=== PATIENT | male | born 1955 | race Caucasian/White ===

== ENCOUNTER 2025-04-13 10:56 | Outpatient (AMB) | payer MEDICARE, MEDICAID, SELFPAY ==
--- NOTE | 2025-04-13 10:58 | A.OFFPC_ITS ---
Vital Signs 04/13/25 11:05 Height 5 ft 11 in Weight 198 lb BMI 27.6 BP 152/92 H Blood Pressure Location Rt brachial Position Sitting Respiration 16 Pulse 77 Pulse Source Pulse Oximeter Temp 97.5 F Pulse Oximetry (%) 98 Oxygen Delivery Method Room Air Intake Visit Reasons: 3 month follow up-juliano pt Fish Net Maker Required: No Accompanied by: Self / Same As Patient Allergies Antibiotic Allergy (Unknown, Uncoded 04/13/25 11:01) Anaphylaxis Medication List - Last Reconciled 04/13/25 by Alvaro Call MD diltiazem HCl ER (Tiazac) 360 mg (2 x 180 mg) PO DAILY fluticasone propionate 50 mcg/actuation 2 sprays intranasal BID PRN FreeStyle Test (blood sugar diagnostic) once daily NS hydralazine 50 mg PO BID hydrochlorothiazide 25 mg PO QAM meloxicam 15 mg PO DAILY PRN metformin 500 mg PO BEDTIME pregabalin 100 mg PO BEDTIME simvastatin 10 mg PO BEDTIME trazodone 50 mg PO BEDTIME valacyclovir 500 mg PO DAILY Tobacco use date assessed: 04/13/25 HPI HPI Comments History of Present Illness Details The patient is a 69-year-old male presenting with a primary concern of hypertension management and follow-up on chronic conditions. Approximately a month and a half ago, the patient experienced a hypertensive episode with a blood pressure reading of 190/90 mmHg, leading to an ER visit. He notes this episode was likely exacerbated by stress related to personal loss and financial issues. After a series of cardiac evaluations, it was concluded that his heart was not the primary issue, but rather stress-induced. He has a history of hypertension, initially managed with lisinopril, which was discontinued due to elevated potassium levels. Currently, he takes hydralazine and hydrochlorothiazide. The patient also reports managing Type 2 Diabetes Mellitus with metformin 500 mg, although he had run out of test strips a month ago and therefore seldom checks his glucose levels presently. His weight and lack of activity have contributed to sciatic pain and bilateral knee osteoarthritis, which have remained untreated surgically despite recommendations for knee replacements made 15 years ago. He mentions taking trazodone for sleep and venlafaxine for anxiety. Additionally, he treats genital herpes with valacyclovir. The patient has been managing his sleep disorder with trazodone and deals with anxiety following personal loss, as discussed. He highlights issues with climbing stairs and pain in his knees aggravated by physical activity. The knee condition is improved by less strenuous activity, and he denies having regular stiffness in the morning. Recently, he feels his domestic arrangements are not ideal for someone considering knee replacement surgery, given his living on the second floor. Nonetheless, the patient remains hopeful about relocating to a first-floor apartment, allowing knee surgery considerations to gain practicality. Medical History: - Essential Hypertension - Hyperlipidemia - Type 2 Diabetes Mellitus - Sciatic condition - Bilateral Knee Osteoarthritis - Anxiety Disorder Surgical History: - Arthroscopic knee surgery for bone fra gment removal Medications: - Hydralazine 50 mg twice daily for hype rtension - Hydrochlorothiazide 25 mg daily for hy pertension - Metformin 500 mg for Type 2 Diabetes M ellitus - Trazodone for sleep - Valacyclovir for genital herpes - Pregabalin for sciatic pain Family History: - The son due to the opioid epi demic Social: - Lives alone - Previous long-term smoking history (10 years, quit 2014) - Alcohol use: 3 beers; monthly social o ccasion - Plans to relocate from the second floo r to the first floor unit to accommodate potential knee surgery - Experiences sciatic pain which impacts physical activity such as climbing stairs [facility] Medical History (Updated 04/13/25 @ 11:33 by Alvaro Call MD) Hyperlipidemia Hypertension Social History Housing: Apartment Patient Tobacco Use Status: Former Tobacco user Tobacco use type: Cigarette e-Cigarette/Vaping Use: Never Used Questionnaire PHQ-9 Over the last 2 weeks, how often have you been bothered by any of the following problems? 1. Little interest or pleasure in doing things: not at all 2. Feeling down, depressed, or hopeless: not at all 3. Trouble falling or staying asleep, or sleeping too much: not at all 4. Feeling tired or having little energy: not at all 5. Poor appetite or overeating: not at all 6. Feeling bad about yourself - or that you are a failure or have let yourself or your family down: not at all 7. Trouble concentrating on things, such as reading the newspaper or watching television: not at all 8. Moving or speaking so slowly that other people could have noticed. Or the opposite - being so fidgety or restless that you have been moving around a lot more than usual: not at all 9. Thoughts that you would be better off or of hurting yourself in some way: not at all Total score: 0 Depression Screening Interpretation: Negative Depression Screening Done: Yes 74374 - PHQ-9 Billing: Yes Source: Developed by Drs. Eamon Guardado, Vianney Ryan, James Crowley and colleagues, with an educational alicia from [employer]. Thrive Questionnaire Date Thrive assessed: 04/13/25 I am a: Patient What is your living situation today?: I have a steady place to live Within the past 12 months, did the food you bought not last and you didn't have the money to get more?: Never true Within the past 12 months, did you worry whether your food would run out before you got money to buy more?: Never true Do you have trouble paying for medicines?: No Do you have trouble getting transportation to medical appointments?: No Do you have trouble paying your heating and electricity bill?: No Do you have trouble taking care of your child, family member or friend?: No Do you have trouble with day-to-day activities such as bathing, preparing meals, shopping, managing finances, etc.?: No Are you currently unemployed and looking for a job?: No Are you interested in more education?: No THRIVE Score: 0 AUDIT C Alcohol Use Questionnaire (AUDIT-C) 1. How often do you have a drink containing alcohol?: Monthly or less 2. How many drinks containing alcohol do you have on a typical day when you are drinking?: 3 or 4 3. How often do you have six or more drinks on one occasion?: Never Total Score: 2 NATASHA-7 AMB Questionnaire NATASHA-7 Feeling nervous, anxious, or on edge: 0 = Not at all Not being able to stop or control worryin = Not at all Worrying too much about different things: 0 = Not at all Trouble relaxin = Not at all Being so restless that it is hard to sit still: 0 = Not at all Becoming easily annoyed or irritable: 0 = Not at all Feeling afraid as if something awful might happen: 0 = Not at all Total NATASHA-7 score (0-4 normal; 5-9 mild; 10-14 moderate; 15-21 severe): 0 Source: Developed by Drs. Eamon Guardado, Vianney Ryan, James Crowley and colleagues, with an educational alicia from [employer]. NATASHA-7 Assessment Billing NATASHA-7 Assessment Tool: NATASHA-7 Assessment 15353 Review of Systems Const Details: - Cardiovascular: Denies chest pain, denies shortness of breath - Gastrointestinal: Denies nausea, vomiting, bowel movements regular without blood - Genitourinary: Denies blood in urine, no issues with urination - Musculoskeletal: Reports sciatic condition, knee pain - Neurological: Denies headaches - Psychiatric: Reports management of anxiety Physical exam (Primary Care) Vital Signs: Last Vital Signs Temp 97.5 F 04/13/25 11:05 Pulse 77 04/13/25 11:05 Resp 16 04/13/25 11:05 BP 152/92 H 04/13/25 11:05 Pulse Ox 98 04/13/25 11:05 Oxygen Delivery Method Room Air 04/13/25 11:05 BMI result Body Mass Index 27.6 Tobacco/Smoking Status: Tobacco use Status Tobacco use date assessed 04/13/25 04/13/25 11:04 Patient Tobacco Use Status Former Tobacco user 04/13/25 11:08 Tobacco use type Cigarette 04/13/25 11:08 e-Cigarette/Vaping Use Never Used 04/13/25 11:04 Depression Screening Interpretation: Negative Const Other: General: Alert and oriented, Well nourished, No acute distress. Eye: Pupils are equal, round and reactive to light, Intact accommodation, Extraocular movements are intact, Normal conjunctiva, Vision unchanged. HENT: Normocephalic, Atraumatic, Tympanic membranes are clear, Normal hearing, Oral mucosa is moist, No pharyngeal erythema, Ear canals patent. Respiratory: Lungs CTA bilaterally, No wheeze, Respirations are non-labored. Cardiovascular: Regular rate, Regular rhythm, S1 auscultated, S2 auscultated, No murmur, Good pulses equal in all extremities, Normal peripheral perfusion, No edema. Gastrointestinal: Soft, Non-tender, Non-distended, Normal bowel sounds, No organomegaly. Musculoskeletal: Normal range of motion, Normal strength, No tenderness, No swelling, No deformity, Normal gait. Noted sciatic condition and need for knee replacements. Integumentary: Warm, Dry, [place], Intact. Lesion noted on right forearm with irregular borders, darker than the rest of the skin. Neurologic: Alert, Oriented, Normal sensory, Normal motor function, No focal defects, Cranial Nerves II-XII are grossly intact, Normal deep tendon reflexes. Psychiatric: Cooperative, Appropriate mood & affect, Normal judgment. Reports stress and anxiety related to personal losses and financial issues, but no current depression or anxiety symptoms. Coding Level of Care Code New Pt Level 4 (11588) Complex EM visit Add On G2211 Diagnoses Type 2 diabetes mellitus E11.9 Hypertension I10 Hyperlipidemia E78.5 Additional Codes PHQ-9 - 52996 - PHQ-9 Billing: Yes ([id number]) NATASHA-7 Assessment Billing - NATASHA-7 Assessment Tool: NATASHA-7 Assessment 76887 ([id number]) Assessment & Plan Assessment & Plan (1) Type 2 diabetes mellitus: Comment: Unclear of diagnosis of diabetes, currently on metformin but unsure of A1c. Home blood sugars are below 100. At this time we will continue metformin and obtain A1c and determine changes in medication regimen Code(s): E11.9 - Type 2 diabetes mellitus without complications Category: Medical Plan: Order A1c Continue metformin (2) Hypertension: Comment: Currently being managed with diltiazem 360, hydralazine 50 b.i.d., hydrochlorothiazide 25 mg. Previously tried and knees however had hyperkalemia with that medication therefore we will increase hydralazine to 50 t.i.d. and I have asked brain record of pressures. Code(s): I10 - Essential (primary) hypertension Category: Medical Plan: Increase hydralazine from 50 mg b.i.d. to 50 t.i.d. Continue diltiazem 360 mg daily Continue hydrochlorothiazide 25 mg daily Continue blood pressure monitoring (3) Hyperlipidemia: Comment: Elevated LDL per last blood work and currently on simvastatin 10 mg daily Code(s): E78.5 - Hyperlipidemia, unspecified Category: Medical Plan: Continue simvastatin 10 and reordered lipid panel Plan 4. Sciatic Pain - Continue current management with pregabalin 5. Bilateral Knee Osteoarthritis - Consideration for knee replacement pending; discuss with orthopedics (patient has declined TKR's previously) 6. Sleep Disorder - Trazodone regime to continue 7. Genital Herpes - Continue valacyclovir therapy Orders: Orders Comprehensive Met. Panel Today E11.9 - Type 2 diabetes mellitus without complications, E78.5 - Hyperlipidemia, unspecified, I10 - Essential (primary) hypertension Hemoglobin A1c Today E11.9 - Type 2 diabetes mellitus without complications, E78.5 - Hyperlipidemia, unspecified, I10 - Essential (primary) hypertension TSH reflex Free T4 Today E11.9 - Type 2 diabetes mellitus without complications, E78.5 - Hyperlipidemia, unspecified, I10 - Essential (primary) hypertension Complete Blood Count Auto Diff Today E11.9 - Type 2 diabetes mellitus without complications, E78.5 - Hyperlipidemia, unspecified, I10 - Essential (primary) hypertension Vitamin D 25-OH Total Today E11.9 - Type 2 diabetes mellitus without complications, E78.5 - Hyperlipidemia, unspecified, I10 - Essential (primary) hypertension Lipid Panel Today E11.9 - Type 2 diabetes mellitus without complications, E78.5 - Hyperlipidemia, unspecified, I10 - Essential (primary) hypertension Referrals Cologuard Test Z12.11 - Encounter for screening for malignant neoplasm of colon, Z12.12 - Encounter for screening for malignant neoplasm of rectum Medications: New hydrochlorothiazide 25 mg PO QAM 90 tabs 0RF 90 days Changed From hydralazine Take 1 tab by mouth twice a day 50 mg PO BID 180 tabs 0RF To hydralazine Take 1 tab by mouth twice a day 50 mg PO TID 270 tabs 0RF 90 days Patient Instructions: During the visit, I discussed with the patient the management plan for his hypertension, emphasizing the adjustment of his hydralazine dosage to better control blood pressure. We explored the interplay between stress, personal loss, and hypertension, and discerned that recent cardiac evaluations ruled out significant cardiac issues. The need for better cholesterol and glucose management was delineated, while addressing his current medications. Furthermore, we examined interventions for his orthopedic challenges, including future knee surgery and living arrangements conducive for post-operative recovery. I reinforced the importance of follow-ups and encouraged contact with the cardiology unit for any pending reports. Vaccination protocols and potential diagnostics like Cologuard were also reviewed. - Take hydralazine 50 mg three times a day, daily - Monitor blood pressure at home regularly - Continue metformin and strive for periodic glucose level checks at home - Follow up with your quality improvement specialist regarding knee surgery options - Maintain trazodone and valacyclovir as prescribed - Recognize and moderate stress sources; consider reaching out for mental health support if needed - Ensure to keep up with vaccinations - Schedule a follow-up visit in approximately six months or earlier if symptoms persist or worsen
[2025-04-13 11:05] VITALS: BP 152/92; PULSE 77; RESP 16; TEMP 36.4; O2SAT 98; BMI 27.6
--- OUTSIDE RECORDS SUMMARY | 2025-04-13 11:50 | XMS_ITS | Clinical Summary ---
Author Organization [facility] Address [address] [place] [address] Phone Care Team Providers Care Bi Analyst Name Role Phone Kamar Randhawa MD Primary Care Provider Allergies No known active allergies Medications dilTIAZem 180 mg 24hr Active lisinopril (PRINIVIL,ZESTR IL) 30 MG tablet Active meloxicam (MOBIC) 15 MG tablet Take 15 mg by mouth daily. 11 09/15/2017 Active cyclobenzaprine (FLEXERIL) 5 MG tablet Take 5 mg by mouth. 0 07/23/2017 Active gabapentin (NEURONTIN) 300 MG capsule TAKE 2 CAPSULE BY MOUTH EVERY MORNING AND 2 CAPSULES AT BEDTIME 3 08/29/2017 Active valACYclovir (VALTREX) 500 MG tablet Take 500 mg by mouth daily. 11 08/12/2017 Active fluticasone propionate (FLONASE) 50 mcg/actuation nasal spray USE 2 SPRAYS INTO BOTH NOSTRILS TWICE A DAY NEEDED 02/17/2020 Active hydrocortisone 2.5 % cream APPLY A THIN LAYER TO THE AFFECTED AREAS 2 TIMES PER DAY FOR 7 TO 10 DAYS 01/31/2020 Active metFORMIN (GLUCOPHAGE) 500 MG tablet Take 500 mg by mouth nightly at bedtime. 02/27/2020 Active pregabalin (LYRICA) 50 MG capsule TAKE 1 CAPSULE BY MOUTH AT BEDTIME 03/31/2020 Active traZODone (DESYREL) 50 MG tablet TAKE 1 TABLET BY MOUTH AT BEDTIME DIRECTED 04/10/2020 Active lisinopril (PRINIVIL,ZESTR IL) 40 MG tablet Take 40 mg by mouth daily. 01/24/2020 Active Active Problems Problem Noted Date Diagnosed Date Hypertension 09/30/2017 Primary localized osteoarthrosis of right lower leg 09/30/2017 Bilateral chronic knee pain 09/29/2017 Family History Medical History Relation Comments No Known Problems Brother No Known Problems Father No Known Problems Maternal Aunt No Known Problems Maternal Grandfather No Known Problems Maternal Grandmother No Known Problems Maternal Uncle Infl. arthritis Mother No Known Problems Paternal Aunt No Known Problems Paternal Grandfather No Known Problems Paternal Grandmother No Known Problems Paternal Uncle No Known Problems Sister Cancer Unspecified Clotting disorder Neg Hx Collagen disease Neg Hx Depression Neg Hx Diabetes Neg Hx Dislocations Neg Hx Gout Neg Hx Osteoporosis Neg Hx Scoliosis Neg Hx Relation Status Comments Brother Father Maternal Aunt Maternal Grandfather Maternal Grandmother Maternal Uncle Mother Paternal Aunt Paternal Grandfather Paternal Grandmother Paternal Uncle Sister Unspecified Social History Tobacco Use Types Packs/Day Years Used Date Smoking Tobacco: Former Cigarettes Q uit: 09/2012 Smokeless Tobacco: Former Education Answer Date Recorded Are you interested in more education? Not on prasanna e 12/13/2022 Are you concerned about learning? Not on file 12/13/2022 No 12/13/2022 No 12/13/2022 Digital Access Answer Date Recorded No 01/11/2023 No 01/11/2023 Reliable internet access at home? Not on file 01/11/2023 Device with a working camera? Not on file Sex and Gender Information Value Date Recorded Sex Assigned at Not on file Legal Sex Male 9:53 PM EDT Gender Identity Not on file Sexual Orientation Not on file Last Filed Vital Signs Vital Sign Reading Time Taken Comments Blood Pressure 146/96 2017 10:44 AM EDT Pulse 82 2017 10:44 AM EDT Temperature - - Respiratory Rate - - Oxygen Saturation - - Inhaled Oxygen Concentration - - Weight 100.7 kg (222 lb) 04/18/2020 10:40 AM EDT Height 180.3 cm (5' 10.98 ) 09/30/2017 2:[address] Body Mass Index 30.98 09/30/2017 2:39 PM EST Plan of Treatment Health Maintenance Due Date Last Done Comments Adult Td,Tdap Booster 1957 BLOOD PRESSURE 1957 CREATININE LEVEL 1957 LIPID PANEL 1957 POTASSIUM LEVEL 1957 DEPRESSION SCREENING 1969 SMOKING Hx and SMOKELESS TOBACCO SCREENING 1970 HEPATITIS C SCREENING 1975 COLOGUARD 2002 COLONOSCOPY 2002 COLORECTAL CANCER SCREENING 2002 FIT TEST 2002 FOBT 2002 SIGMOIDOSCOPY 2002 VIRTUAL COLONOSCOPY 2002 PNEUMOCOCCAL VACCINES (50+ years) (1 of 1 - PCV) 2007 ZOSTER VACCINES (1 of 2) 2007 ABDOMINAL AORTIC ANEURYSM (AAA) SCREENING 2022 COVID-19 VACCINE (2 - 2023-2 5 season) 2024 11/10/2020 INFLUENZA VACCINE (#1) 2025 9, 05/21/2018, 05/22/2017 RSV VACCINE (1 - 1-dose 75+ series) 2032 HEPATITIS A VACCINES Aged Out No long er eligible based on patient's age to complete this topic HIB VACCINES Aged Out No longer eligi ble based on patient's age to complete this topic MENINGOCOCCAL VACCINES (ACWY) Aged Out No longer eligible based on patient's age to complete this topic MENINGOCOCCAL VACCINES (B) Aged Out N o longer eligible based on patient's age to complete this topic Medical Devices Not on file Insurance [facility] MEDICARE PART A & [place] & B [employer] Care Teams Bi Analyst Relationship Specialty Start Date End Date Kamar Randhawa MD [address] [place] [address] [place] [address] PCP - General 06/05/17 Additional Source Comments The information contained in this document represents components of the legal health record. It is not the complete legal health record.[facility]
--- OUTSIDE RECORDS SUMMARY | 2025-04-13 11:50 | XMS_ITS | Encounter Summary ---
Author Organization [employer] [facility] Address [address] [place] [address] Care Team Providers Care Stone Fabricator Name Role Phone Unavailable Primary Care Provider Unavailabl e Encounter Details Date Type Department Care Team (Latest Contact Info) Description 10/14/2018 Abstract C CONVERSIONS Dental, Provider, DDS Social History Tobacco Use Types Packs/Day Years Used Date Smoking Tobacco: Never Assessed Sex and Gender Information Value Date Recorded Sex Assigned at Male 06/17/2022 10:28 AM EDT Legal Sex Male 10:28 AM EDT Gender Identity Not on file Sexual Orientation Not on file documented as of this encounter Plan of Treatment Not on file documented as of this encounter Visit Diagnoses Not on filedocumented in this encounter
--- OUTSIDE RECORDS SUMMARY | 2025-04-13 11:50 | XMS_ITS | Clinical Summary ---
Author Organization [employer] Address [address] [place] [address] Care Team Providers Care Breastfeeding Educator Name Role Phone Unavailable Primary Care Provider Unavailabl e Social History Tobacco Use Types Packs/Day Years Used Date Smoking Tobacco: Never Assessed Sex and Gender Information Value Date Recorded Sex Assigned at Male 06/17/2022 10:28 AM EDT Legal Sex Male 10:28 AM EDT Gender Identity Not on file Sexual Orientation Not on file Plan of Treatment Health Maintenance Due Date Last Done Comments CT Colonography 1957 Colonoscopy 1957 Colorectal Cancer Screening 1957 Depression Screening 1957 FIT DNA/Cologuard 1957 FIT 1957 FOBT 1957 Lipid Panel 1957 Sigmoidoscopy 1957 Alcohol/Substance Use Screening 1969 Tobacco Screening 1969 DTaP/Tdap/Td Vaccines (1 - Tdap) 1976 Pneumococcal Vaccine: 50+ Ye ars (1 of 1 - PCV) 2007 Zoster Vaccines (1 of 2) 2007 COVID-19 Vaccine ( - 2023-2 5 season) 2024 Influenza Vaccine (#1) 2025 RSV Patients and Pa tients Aged 60 years or older (1 - 1-dose 75+ series) 2032 HIB Vaccines Aged Out No longer eligi ble based on patient's age to complete this topic HPV Vaccines Aged Out No longer eligi ble based on patient's age to complete this topic Hepatitis A Vaccines Aged Out No long er eligible based on patient's age to complete this topic Hepatitis B Vaccines Aged Out No long er eligible based on patient's age to complete this topic IPV Vaccines Aged Out No longer eligi ble based on patient's age to complete this topic Meningococcal B Vaccine Aged Out No l onger eligible based on patient's age to complete this topic Meningococcal Vaccine Aged Out No elizabeth sonja eligible based on patient's age to complete this topic RSV under 20 months Aged Out No longe r eligible based on patient's age to complete this topic Rotavirus Vaccines Aged Out No longer eligible based on patient's age to complete this topic
--- OUTSIDE RECORDS SUMMARY | 2025-04-13 11:50 | XMS_ITS | Clinical Summary ---
Author Organization [employer] [facility] Address [address] [place] [address] Care Team Providers Care Principal Examiner Name Role Phone Unavailable Primary Care Provider Unavailabl e Social History Tobacco Use Types Packs/Day Years Used Date Smoking Tobacco: Never Assessed Sex and Gender Information Value Date Recorded Sex Assigned at Not on file Legal Sex Male 9:25 AM EST Gender Identity Not on file Sexual Orientation Not on file Plan of Treatment Health Maintenance Due Date Last Done Comments DTaP,Tdap,and Td Vaccines (1 - Tdap) 1976 Pneumococcal Vaccine: 50+ Ye ars (1 of 1 - PCV) 2007 Zoster Vaccines (1 of 2) 2007 03/03/2023 COVID-19 Vaccine (1 - 2023-2 5 season) 2024 Depression Screening 08/18/2024 Influenza Vaccine (#1) 2025 RSV Immunization Adult Patie nts (1 - 1-dose 75+ series) 2032 HIB [...] on patient's age to complete this topic MMR Vaccines Aged Out No longer eligi ble based on patient's age to complete this topic Meningococcal ACWY Vaccine Aged Out N o longer eligible based on patient's age to complete this topic Meningococcal B Vaccine Aged Out No l onger eligible based on patient's age to complete this topic RSV Immunization Patients Un edwin 20 months Aged Out No longer eligible b ased on patient's age to complete this topic Varicella Vaccines Aged Out No longer eligible based on patient's age to complete this topic
== END 2025-04-13 12:50 | disposition home or self-care (01) ==
LOC: HO.HMCHD 10:57
PROVIDERS: PCP Student in an Organized Health Care Education/Training Program; Visit Provider Student in an Organized Health Care Education/Training Program
DX: E11.9 Type 2 diabetes mellitus without complications (principal); I10 Essential (primary) hypertension; E78.5 Hyperlipidemia, unspecified

== ENCOUNTER → 2025-04-13 10:56 | Outpatient (BNVA) | payer MEDICARE, MEDICAID, SELFPAY | PROVIDERS: PCP Family Medicine; Visit Provider Student in an Organized Health Care Education/Training Program | DX: E11.9 Type 2 diabetes mellitus without complications (principal); E78.5 Hyperlipidemia, unspecified; I10 Essential (primary) hypertension | CPT/HCPCS: 96127; 99202 ==

== ENCOUNTER 2025-06-02 11:45 | Outpatient (REF) | payer MEDICARE, MEDICAID, SELFPAY ==
[2025-06-02 13:30] LABS: MANUAL DIFF FLAG NO
[2025-06-02 13:45] LABS: Hemoglobin A1C 148.0320 umol/L; Total Hemoglobin (HGBA1C) 3552.8232 umol/L
[2025-06-02 13:46] LABS: Hematocrit 40.8 % (42.0-52.0); Hemoglobin 13.9 g/dl (14.0-18.0); Imm Gran Abs Auto 0.01 X10*3/uL (0.00-0.03); Imm Gran Pct Auto 0.2 % (0.0-0.4); Lymphocytes Absolute Auto 1.7 X10*3/uL (1.2-4.9); Mean Corpuscular HGB Conc 34.1 g/dl (31.0-36.0); Mean Corpuscular Hemoglobin 32.1 pg (27.0-33.0); Mean Corpuscular Volume 94.2 fL (80.0-98.0); NRBC Abs Auto 0.000 X10*3/uL (0.0-0.012); NRBC Pct Auto 0.0 /100WBC (0.0-0.2); Platelet Count 257 X10*3/uL (160-400); Red Blood Count 4.33 X10*6/uL (4.60-5.80); White Blood Count 5.3 X10*3/uL (4.8-10.8)
[2025-06-02 14:26] LABS: Alanine Aminotransferase 51 U/L (0-40); Albumin Level 4.8 g/dL (3.5-5.0); Alkaline Phosphatase 50 U/L (39-117); Anion Gap 13 (12-20); Aspartate Amino Transferase 49 U/L (5-37); Blood Urea Nitrogen 10 mg/dL (9-16); Calcium 10.2 mg/dL (8.4-10.2); Carbon Dioxide 32 mmol/L (22-29); Chloride 100 mmol/L (96-108); Cholesterol 178 mg/dL (<200); Estimated Glomerular Filt Rate > 60; HDL Cholesterol 72 mg/dL (>40); Potassium 4.0 mmol/L (3.3-5.1); Sodium 141 mmol/L (135-145); Total Protein 7.7 g/dL (6.5-8.0); Triglycerides 103 mg/dL (<150)
--- OUTSIDE RECORDS SUMMARY | 2025-06-02 15:04 | XMS_ITS | Clinical Summary ---
Author Organization [employer] Address [address] [place] [address] Care Team Providers Care Children'S Aide Name Role Phone Unavailable Primary Care Provider [...] Vaccines (1 of 2) 2007 COVID-19 Vaccine (1 - 2023-2 5 season) 2025 Influenza Vaccine (#1) 2025 RSV Patients and [...]
--- OUTSIDE RECORDS SUMMARY | 2025-06-02 15:04 | XMS_ITS | Encounter Summary ---
Author Organization [facility] Address [address] [place] [address] Care Team Providers Care Sheetmetal Trades Worker Name Role Phone Unavailable Primary Care Provider [...]
--- OUTSIDE RECORDS SUMMARY | 2025-06-02 15:04 | XMS_ITS | Clinical Summary ---
Author Organization [facility] Address [address] [place] [address] Phone Care Team Providers Care Milk Treater Name Role Phone Kamar Randhawa MD Primary [...] 2007 ABDOMINAL AORTIC ANEURYSM (AAA) SCREENING 2022 INFLUENZA VACCINE (#1) 2025 9, 05/21/2018, 05/22/2017 COVID-19 VACCINE (2 - 2024-2 6 season) 2025 11/10/2020 RSV VACCINE (1 - 1-dose 75+ series) [...] topic Medical Devices Not on file Insurance [facility] MEDICARE PART A & [place] & [place] & [place] & [place] & [place] & [place] & [place] & [place] A & B [employer] Care Teams Milk Treater Relationship Specialty Start Date End Date Kamar Randhawa MD [address] [place] [address] [id number] PCP - General 06/05/17 Additional Source Comments The information contained in this document represents components of the legal health record. It is not the complete legal health record.[facility]
== END 2025-06-02 11:46 | disposition home or self-care (01) ==
LOC: HO.10HDL 11:45
PROVIDERS: Visit Provider Student in an Organized Health Care Education/Training Program
DX: E11.9 Type 2 diabetes mellitus without complications (principal); E78.5 Hyperlipidemia, unspecified; I10 Essential (primary) hypertension
CPT/HCPCS: 36415; 80053; 80061; 82306; 83036; 84443; 85025